=== PATIENT | female | born 2000 | race Caucasian/White ===

== ENCOUNTER 2019-08-04 20:27 | Emergency (ER) | payer SELFPAY ==
[2019-08-04] MEDS ORDERED: Fentanyl 100 MCG/2 ML VIAL ONE ×2 (21:05→22:02)
--- NOTE | 2019-08-04 21:19 | RAD ---
PORTABLE CHEST ONE VIEW: 08/04/19 at 9:16 p.m. HISTORY: Trauma, chest pain. FINDINGS: The heart size is normal. The lungs are expanded without focal areas of consolidation, pneumothoraces or pleural effusions. IMPRESSION: No radiographic evidence of acute cardiopulmonary process. POS: [facility]
--- NOTE | 2019-08-04 21:22 | RAD ---
XR Pelvis AP STANDARD HISTORY: Trauma, pelvic pain FINDINGS: No fracture or dislocation is identified.
--- NOTE | 2019-08-04 21:42 | RAD ---
RIGHT KNEE FOUR VIEWS: 08/04/19 HISTORY: Trauma, right knee pain. FINDINGS/IMPRESSION: No acute fracture or dislocation is identified. POS: [facility]
--- NOTE | 2019-08-04 21:43 | RAD ---
Left knee four views: 08/04/19 HISTORY: Trauma, left knee pain. FINDINGS/IMPRESSION: No acute fracture or dislocation is identified. POS: [facility]
--- NOTE | 2019-08-04 21:44 | CT ---
CT BRAIN WITHOUT CONTRAST: 08/04/19 HISTORY: Trauma, headache. FINDINGS: No evidence of acute infarct, hemorrhage, midline shift or abnormal extra-axial fluid collections are seen. The ventricular size is normal and the basilar cisterns patent. The bony calvarium is intact. The visualized paranasal sinuses and mastoid air cells are well aerated. IMPRESSION: No CT evidence of acute intracranial process. POS: [facility]
--- NOTE | 2019-08-04 22:01 | CT ---
CT CERVICAL SPINE WITH CORONAL AND SAGITTAL REFORMATIONS: 08/04/19 HISTORY: Trauma, neck pain. FINDINGS/IMPRESSION: There is loss cervical lordosis. No fracture, subluxation or facet malalignment is seen. POS: [facility]
[2019-08-04] MEDS ORDERED: Ketorolac Tromethamine 30 MG/ML VIAL ONE (22:02)
[2019-08-04 22:06] LABS: #Basophils 0.1 thou/uL (0.0-0.2); #Lymphocytes 1.4 thou/uL (1.20-3.40); #Monocytes 0.4 thou/uL (0.11-0.59); #Neutrophils 7.2 thou/uL (1.40-6.50); %Basophils 0.6 % (0.0-1.0); %Eosinophils 0.4 % (0.0-10.0); %Lymphocytes 15.9 % (28.0-48.0); %Monocytes 4.4 % (0.0-4.0); %Neutrophils 78.8 % (31.0-61.0); Hemoglobin 14.1 g/dL (12.0-16.0); Mean Corpuscular HGB CONC 31.7 g/dL (32.0-36.0); Mean Corpuscular Hemoglobin 28.3 pg (25.0-35.0); Mean Corpuscular Volume 89.4 fL (78.0-98.0); Mean Platelet Volume 7.1 fL (7.4-10.4); Platelet Count 284 thou/uL (130-400); RBC Distribution Width 10.3 % (11.5-14.5); Red Blood Cell (RBC) Count 4.98 mill/uL (4.00-5.20); White Blood Cell (WBC) Count 9.1 thou/uL (4.8-10.8)
[2019-08-04 22:11] LABS: PTT 25.6 SEC (22.9-36.1); Prothrombin Time 13.1 SEC (12.0-14.7)
[2019-08-04 22:22] LABS: ALT (SGPT) 29 U/L (8-55); AST (SGOT) 22 U/L (5-34); Albumin 4.4 g/dL (3.5-5.0); Alkaline Phosphatase 71 U/L (40-100); Anion Gap 17 mmol/L (10-20); BUN (Urea Nitrogen) 5 mg/dL (7.0-18.7); Bilirubin, Total 0.6 mg/dL (0.2-1.2); CK (CPK) 118 U/L (29-168); Calc. Creatinine Clearance 0 mL/min (70-130); Calcium 8.9 mg/dL (7.8-10.44); Carbon Dioxide 22 mmol/L (22-29); Chloride 110 mmol/L (98-107); Estimated GFR-MDRD Greater than 90; Globulin 2.9 g/dL (2.4-3.5); Glucose 93 mg/dL (70-105); Lipase 17 U/L (8-78); Potassium 3.6 mmol/L (3.5-5.1); Protein, Total 7.3 g/dL (6.0-8.3); Sodium 145 mmol/L (136-145)
[2019-08-04 22:26] LABS: BHCG - Serum Negative (NEGATIVE); Pregs Control Background? CLEAR/WHITE (CLR/WHITE); Pregs Control Bar Appear? YES (CONTROL BAR)
== END 2019-08-04 22:42 | disposition home or self-care (01) ==
LOC: MADERS 20:27
DX: S40.012A Contusion of left shoulder, initial encounter (principal); S80.02XA Contusion of left knee, initial encounter; S80.01XA Contusion of right knee, initial encounter; F32.9 Major depressive disorder, single episode, unspecified; F17.210 Nicotine dependence, cigarettes, uncomplicated; V89.2XXA Person injured in unspecified motor-vehicle accident, traffic, initial encounter
CPT/HCPCS: 70450; 71045; 72125; 72170; 80053; 82550; 83690; 84703; 85025; 85610; 85730; J1885; J3010